=== PATIENT | male | born 1965 | race African-American/Black ===

== ENCOUNTER → 2016-12-15 | Outpatient (CLI) | payer MEDICARE, MEDICAID ==
[~2016-12-15] MED LIST: AML5T PO; ASPI-498 PO; ATOR40TA52 PO; CLOP75TA41 PO; ENA10T PO; GABA250S2 PO; HYDR-4663 PO; PANT1INJ3 PO; PIRO-23 PO; SERT-274 PO; SITA100T7 PO; TAMS0.4C36 PO
[2016-12-15 09:26] LABS: Basophils # (auto) 0.1 uL; Basophils % (auto) 0.5 % (0.0-2.0); CONDITION Y; Eosinophils # (auto) 0.1 uL; Eosinophils % (auto) 1.1 % (0.0-7.0); Hematocrit 36.9 % (41.0-53.0); Hemoglobin 12.2 g/dL (13.5-17.5); Lymphocytes # (auto) 2.6 uL; Lymphocytes % (auto) 24.4 % (10.0-50.0); Mean Corpuscular Hemoglobin 29.1 pg (28.0-32.0); Mean Corpuscular Hgb Conc. 33.1 g/dL (32.0-36.0); Mean Platelet Volume 8.1 fL (7.4-10.4); Monocytes # (auto) 0.6 uL; Neutrophils # (auto) 7.2 uL; Platelet Count (auto) 461 10^3/uL (140-450); Red Cell Distribution Width 16.6 % (11.6-16.0); White Blood Cell 10.6 10^3/uL (4.4-10.8)
[2016-12-15 09:57] LABS: Albumin 3.7 g/dL (3.4-5.0); BUN/Creatinine Ratio 12.6; Bilirubin, Total 0.3 mg/dL (0.2-1.0); Calcium 8.9 mg/dL (8.5-10.1); Potassium 4.1 mmol/L (3.5-5.1); Total Protein 7.9 g/dL (6.4-8.2)
== END | disposition home or self-care (01) ==
LOC: LAB 08:56
PROVIDERS: ATTEND Internal Medicine
DX: E11.9 Type 2 diabetes mellitus without complications (principal); M05.19 Rheumatoid lung disease with rheumatoid arthritis of multiple sites
CPT/HCPCS: 36415; 80053; 83036; 84443; 85025; 85652; 86141

== ENCOUNTER 2017-07-09 08:35 | Emergency (ER) | payer MEDICARE, MEDICAID ==
[~2017-07-09] VITALS: Ht 165.1 cm; Wt 79.4 kg
[~2017-07-09 08:35] MED LIST changes: -AML5T PO; +DULO20CA PO; -GABA250S2 PO; -HYDR-4663 PO; +MULT-228 PO; -PIRO-23 PO; -SERT-274 PO; +TERA2CAP45 PO
[2017-07-09 09:55] VITALS: BP 172/95
[2017-07-09] MEDS ORDERED: diphenhdrAMINE HCL 50 MG/1 ML VL IM ONE (10:30)
[2017-07-09] MEDS ORDERED: KETOROLAC TROMETH 60MG/2ML VIAL IM ONE (10:30)
== END 2017-07-09 11:32 | disposition home or self-care (01) ==
LOC: EDBD 08:35 → ER 08:35
DX: M54.5 Low back pain (principal); G89.29 Other chronic pain; M54.16 Radiculopathy, lumbar region; I25.10 Atherosclerotic heart disease of native coronary artery without angina pectoris; E11.9 Type 2 diabetes mellitus without complications; K21.9 Gastro-esophageal reflux disease without esophagitis; I10 Essential (primary) hypertension; I25.2 Old myocardial infarction; F17.210 Nicotine dependence, cigarettes, uncomplicated; Z79.899 Other long term (current) drug therapy; Z86.73 Personal history of transient ischemic attack (TIA), and cerebral infarction without residual deficits
CPT/HCPCS: 96372; 99284; J1200; J1885

== ENCOUNTER 2017-07-29 08:03 | Emergency (ER) | payer MEDICARE, MEDICAID ==
[~2017-07-29] VITALS: Ht 165.1 cm; Wt 79.4 kg
[2017-07-29 08:42] VITALS: BP 143/83
[2017-07-29 09:22] LABS: Basophils # (auto) 0.1 uL; Basophils % (auto) 0.5 % (0.0-2.0); Eosinophils # (auto) 0.2 uL; Hematocrit 42.4 % (41.0-53.0); Hemoglobin 14.2 g/dL (13.5-17.5); Lymphocytes # (auto) 2.1 uL; Lymphocytes % (auto) 13.6 % (10.0-50.0); Mean Corpuscular Hemoglobin 29.9 pg (28.0-32.0); Mean Corpuscular Hgb Conc. 33.5 g/dL (32.0-36.0); Mean Corpuscular Volume 89.5 fL (80.0-100.0); Monocytes # (auto) 0.8 uL; Monocytes % (auto) 5.5 % (0.0-12.0); Neutrophils # (auto) 12.3 uL; Neutrophils % (auto) 79.4 % (37.0-80.0); Nucleated Red Blood Cells % 0.1 %; Platelet Count (auto) 385 10^3/uL (140-450); Red Blood Cells 4.73 10^6/uL (4.5-5.90); Red Cell Distribution Width 15.5 % (11.8-14.3); White Blood Cell 15.5 10^3/uL (4.4-10.8)
[2017-07-29 09:41] LABS: Albumin 3.9 g/dL (3.4-5.0); Bilirubin, Total 0.7 mg/dL (0.2-1.0); Calcium 9.1 mg/dL (8.5-10.1); Potassium 4.9 mmol/L (3.5-5.1); Total Protein 8.5 g/dL (6.4-8.2)
[2017-07-29 10:03] LABS: Urine WBC None Seen /hpf (0 - 3)
[2017-07-29 10:40] LABS: Urine Bacteria NONE SEEN /hpf (None Seen); Urine Blood TRACE /uL (Negative); Urine Specific Gravity 1.033 (1.001-1.035)
== END 2017-07-29 11:15 | disposition left against medical advice (07) ==
LOC: ER 08:03
DX: R11.2 Nausea with vomiting, unspecified (principal); R19.7 Diarrhea, unspecified; R94.31 Abnormal electrocardiogram [ECG] [EKG]; Z53.21 Procedure and treatment not carried out due to patient leaving prior to being seen by health care provider
CPT/HCPCS: 36415; 80053; 81001; 85025; 93005

== ENCOUNTER 2019-05-09 08:21 | Emergency (ER) | payer MEDICARE, MEDICAID ==
[~2019-05-09] VITALS: Ht 165.1 cm; Wt 73.5 kg
[~2019-05-09 08:21] MED LIST changes: -ENA10T PO; +ENAL10TA PO
[2019-05-09 08:54] LABS: Basophils # (auto) 0 uL; Basophils % (auto) 0.5 % (0.0-2.0); Eosinophils # (auto) 0.1 uL; Eosinophils % (auto) 0.9 % (0.0-7.0); Hematocrit 40.9 % (41.0-53.0); Lymphocytes # (auto) 2.1 uL; Lymphocytes % (auto) 19.5 % (10.0-50.0); Mean Corpuscular Hemoglobin 30.7 pg (28.0-32.0); Mean Corpuscular Hgb Conc. 34.3 g/dL (32.0-36.0); Mean Corpuscular Volume 89.7 fL (80.0-100.0); Monocytes # (auto) 0.6 uL; Monocytes % (auto) 5.6 % (0.0-12.0); Neutrophils # (auto) 7.8 uL; Neutrophils % (auto) 73.5 % (37.0-80.0); Nucleated Red Blood Cells % 0.1 %; Platelet Count (auto) 334 10^3/uL (140-450); Red Blood Cells 4.56 10^6/uL (4.5-5.90); Red Cell Distribution Width 14.9 % (11.8-14.3); White Blood Cell 10.6 10^3/uL (4.4-10.8)
[2019-05-09 09:12] LABS: Alanine Aminotransferase 20 U/L (16-61); Anion Gap 6 (5-15); Aspartate Aminotransferase 8 U/L (15-37); Blood Urea Nitrogen 16 mg/dL (7-18); Calcium 7.9 mg/dL (8.5-10.1); Carbon Dioxide 23 mmol/L (21-32); Chloride 109 mmol/L (98-107); GFR African American 92 mL/min; GFR Non-African American 76 mL/min; Glucose 375 mg/dL (74-106); Potassium 4.1 mmol/L (3.5-5.1); Sodium 138 mmol/L (136-145)
[2019-05-09 09:17] LABS: Alkaline Phosphatase 92 U/L (45-117); Bilirubin, Total 0.3 mg/dL (0.2-1.0); Total Protein 7.1 g/dL (6.4-8.2)
[2019-05-09] MEDS ORDERED: SODIUM CHLORIDE 0.9% 1,000 ML IV ONE ×2 (09:27)
[2019-05-09] MEDS ORDERED: InsuLIN REG 1unit/0.01ml Soln (100units/ml) SC ONE (09:30)
[2019-05-09 09:41] LABS: Urine Bacteria NONE SEEN /hpf (None Seen); Urine Blood Negative /uL (Negative); Urine Specific Gravity 1.026 (1.001-1.035); Urine WBC 3 /hpf (0 - 3)
[2019-05-09 12:00] VITALS: BP 114/97
== END 2019-05-09 12:59 | disposition home or self-care (01) ==
LOC: EDBD 08:21 → ER 08:22
DX: E11.65 Type 2 diabetes mellitus with hyperglycemia (principal); I25.10 Atherosclerotic heart disease of native coronary artery without angina pectoris; K21.9 Gastro-esophageal reflux disease without esophagitis; I10 Essential (primary) hypertension; I25.2 Old myocardial infarction; F17.210 Nicotine dependence, cigarettes, uncomplicated
CPT/HCPCS: 36415; 80053; 81001; 82962; 84484; 85025; 93005; 96360; 96361; 96372; 99284; J1815; J7030

== ENCOUNTER 2020-09-29 20:29 | Inpatient (IN) | payer OTHER, MEDICAID ==
[~2020-09-29] VITALS: Ht 165.1 cm; Wt 78.0 kg
[~2020-09-29 20:29] MED LIST changes: -CLOP75TA41 PO; +CLOP75TA70 PO; -ENAL10TA PO; +ENAL10TA12 PO
[2020-09-29 21:44] LABS: Basophils # (auto) 0.1 10 ^3/uL (0-0.2); Basophils % (auto) 0.7 % (0.0-2.0); Eosinophils # (auto) 0.1 10 ^3/uL (0-0.8); Eosinophils % (auto) 0.7 % (0.0-7.0); Hemoglobin 13.7 g/dL (13.5-17.5); Lymphocytes # (auto) 2.5 10 ^3/uL (0.4-5.4); Lymphocytes % (auto) 23.1 % (10.0-50.0); Mean Corpuscular Hemoglobin 30.1 pg (28.0-32.0); Mean Corpuscular Hgb Conc. 33.3 g/dL (32.0-36.0); Mean Corpuscular Volume 90.1 fL (80.0-100.0); Monocytes # (auto) 0.7 10 ^3/uL (0-1.3); Monocytes % (auto) 6.2 % (0.0-12.0); Neutrophils # (auto) 7.4 10 ^3/uL (1.6-8.6); Neutrophils % (auto) 69.3 % (37.0-80.0); Nucleated Red Blood Cells % 0.1 %; Platelet Count (auto) 346 10^3/uL (140-450); Red Blood Cells 4.55 10^6/uL (4.5-5.90); Red Cell Distribution Width 15.2 % (11.8-14.3); White Blood Cell 10.7 10^3/uL (4.4-10.8)
[2020-09-29] MEDS ORDERED: LABETALOL HCL 5 MG/ML 4ML SYRINGE IV ONE (21:45)
[2020-09-29 22:04] LABS: INR 0.96 (0.9-1.15); Partial Thromboplastin Time 23.1 sec (23.0-31.2)
[2020-09-29 22:11] LABS: Albumin 3.3 g/dL (3.4-5.0); Anion Gap 8 (5-15); Blood Urea Nitrogen 17 mg/dL (7-18); Calcium 9.2 mg/dL (8.5-10.1); Carbon Dioxide 24 mmol/L (21-32); Chloride 108 mmol/L (98-107); Glucose 257 mg/dL (74-106); Potassium 3.8 mmol/L (3.5-5.1); Sodium 140 mmol/L (136-145)
[2020-09-29 22:20] LABS: Alanine Aminotransferase 27 U/L (16-61); Alkaline Phosphatase 89 U/L (45-117); Aspartate Aminotransferase 12 U/L (15-37); Bilirubin, Total 0.3 mg/dL (0.2-1.0); GFR African American 93 mL/min; GFR Non-African American 77 mL/min; Total Protein 7.6 g/dL (6.4-8.2)
[2020-09-30] MEDS ORDERED: LABETALOL HCL 5 MG/ML 4ML SYRINGE IV ONE (03:00)
[2020-09-30] MEDS ORDERED: IBUPROFEN 800 MG TAB PO ONE (03:00)
[2020-09-30 03:42] LABS: Urine Bacteria NONE SEEN /hpf (None Seen); Urine Blood TRACE /uL (Negative); Urine Mucus FEW (None Seen); Urine Specific Gravity 1.028 (1.001-1.035); Urine WBC 6 /hpf (0 - 3); Urine WBC Clumps PRESENT /hpf (None Seen)
[2020-09-30] MEDS ORDERED: dilTIAZem 25 MG/5 ML VIAL IV ONE (04:30)
[2020-09-30] MEDS ORDERED: DEXTROSE (50%) 50ML SYRG IV PRN ×2 (04:30→13:30)
[2020-09-30] MEDS ORDERED: TEMAZEPAM 15 MG CAP PO PRN (04:30)
[2020-09-30] MEDS ORDERED: MORPHINE SULF INJ 2 MG/ML SYRINGE 1ML IV PRN (04:30)
[2020-09-30] MEDS ORDERED: ONDANSETRON HCL 4 MG/2 ML VIAL IV PRN (04:30)
[2020-09-30] MEDS ORDERED: NITROGLYCERIN 0.4 MG SL TAB SL PRN (04:30)
[2020-09-30] MEDS: ACCU-CHEK COMFORT CURVE STRIP VI SCH ×5 (06:29→23:48)
[2020-09-30] MEDS: InsuLIN REG 1unit/0.01ml Soln (100units/ml) SC SCH ×4 (06:30→23:51)
[2020-09-30 09:00] VITALS: BP 150/86
[2020-09-30 09:59] VITALS: BP 150/86
[2020-09-30] MEDS: CLOPIDOGREL BISULFATE 75 MG TAB PO SCH (10:01)
[2020-09-30] MEDS: PANTOPRAZOLE 40 MG TAB PO SCH (10:01)
[2020-09-30] MEDS: ENALAPRIL MALEATE 10 MG TAB PO SCH ×2 (10:02→21:55)
[2020-09-30] MEDS: ASPirin 81 mg TAB PO SCH (10:02)
[2020-09-30] MEDS: ACETAMINOPHEN 325 MG TAB PO PRN (10:03)
[2020-09-30] MEDS ORDERED: INSU100I43 SC (10:49)
[2020-09-30] MEDS ORDERED: INSLANTI SC (10:49)
[2020-09-30] MEDS ORDERED: LOSA-69 PO (10:51)
[2020-09-30] MEDS ORDERED: metFORMIN HYDROCHLORIDE 500 MG TAB PO ONE (12:15)
[2020-09-30 13:05] VITALS: BP 161/77
[2020-09-30 16:43] VITALS: BP 148/74
[2020-09-30] MEDS: metFORMIN HYDROCHLORIDE 500 MG TAB PO SCH ×2 (18:00→18:03)
[2020-09-30] MEDS: TAMSULOSIN HYDROCHLORIDE 0.4 MG CAP PO SCH (18:02)
[2020-09-30] MEDS: ATORVASTATIN 20 MG TAB PO SCH (21:54)
[2020-09-30 22:00] VITALS: BP 153/74
[2020-09-30] MEDS: ALPRAZolam 0.25 MG TAB PO PRN (23:04)
[2020-10-01 05:00] VITALS: BP 129/85
[2020-10-01] MEDS: ACCU-CHEK COMFORT CURVE STRIP VI SCH ×4 (05:41→23:35)
[2020-10-01] MEDS: InsuLIN REG 1unit/0.01ml Soln (100units/ml) SC SCH ×4 (05:44→23:37)
[2020-10-01 08:46] VITALS: BP 156/81
[2020-10-01 09:07] LABS: Basophils # (auto) 0.1 10 ^3/uL (0-0.2); Basophils % (auto) 0.7 % (0.0-2.0); Eosinophils # (auto) 0.1 10 ^3/uL (0-0.8); Eosinophils % (auto) 0.9 % (0.0-7.0); Hematocrit 39.6 % (41.0-53.0); Hemoglobin 12.9 g/dL (13.5-17.5); Lymphocytes # (auto) 2.7 10 ^3/uL (0.4-5.4); Lymphocytes % (auto) 21.4 % (10.0-50.0); Mean Corpuscular Hemoglobin 29.6 pg (28.0-32.0); Mean Corpuscular Hgb Conc. 32.6 g/dL (32.0-36.0); Mean Corpuscular Volume 90.7 fL (80.0-100.0); Monocytes # (auto) 0.8 10 ^3/uL (0-1.3); Neutrophils # (auto) 8.9 10 ^3/uL (1.6-8.6); Nucleated Red Blood Cells % 0.2 %; Platelet Count (auto) 335 10^3/uL (140-450); Red Blood Cells 4.36 10^6/uL (4.5-5.90); White Blood Cell 12.5 10^3/uL (4.4-10.8)
[2020-10-01 09:25] LABS: Magnesium 1.9 mg/dL (1.6-2.6); Potassium 3.8 mmol/L (3.5-5.1)
[2020-10-01 09:32] LABS: Albumin 3.1 g/dL (3.4-5.0); BUN/Creatinine Ratio 18.8; Bilirubin, Total 0.5 mg/dL (0.2-1.0); Calcium 8.8 mg/dL (8.5-10.1); Total Protein 6.8 g/dL (6.4-8.2)
[2020-10-01] MEDS: metFORMIN HYDROCHLORIDE 500 MG TAB PO SCH ×2 (09:47→17:41)
[2020-10-01] MEDS: CLOPIDOGREL BISULFATE 75 MG TAB PO SCH (09:47)
[2020-10-01] MEDS: ENALAPRIL MALEATE 10 MG TAB PO SCH ×2 (09:48→22:08)
[2020-10-01] MEDS: PANTOPRAZOLE 40 MG TAB PO SCH (09:48)
[2020-10-01] MEDS: ASPirin 81 mg TAB PO SCH (09:49)
[2020-10-01] MEDS: ALPRAZolam 0.25 MG TAB PO PRN ×2 (10:22→23:38)
[2020-10-01 10:49] LABS: Folate (Folic Acid) 16.16 ng/mL (5.38-24)
[2020-10-01] MEDS: cloNIDine HCL 0.1 MG TAB PO PRN (12:11)
[2020-10-01 12:30] VITALS: BP 190/81
[2020-10-01 16:47] VITALS: BP 156/98
[2020-10-01] MEDS: TAMSULOSIN HYDROCHLORIDE 0.4 MG CAP PO SCH (17:42)
[2020-10-01 22:00] VITALS: BP 145/78
[2020-10-01] MEDS: ATORVASTATIN 20 MG TAB PO SCH (22:07)
[2020-10-02 05:00] VITALS: BP 155/81
[2020-10-02] MEDS: ACCU-CHEK COMFORT CURVE STRIP VI SCH ×4 (05:33→23:18)
[2020-10-02] MEDS: InsuLIN REG 1unit/0.01ml Soln (100units/ml) SC SCH ×4 (05:34→23:23)
[2020-10-02] MEDS: metFORMIN HYDROCHLORIDE 500 MG TAB PO SCH ×2 (08:00→18:00)
[2020-10-02 09:13] VITALS: BP 159/80
[2020-10-02] MEDS: ASPirin 81 mg TAB PO SCH (09:52)
[2020-10-02] MEDS: CLOPIDOGREL BISULFATE 75 MG TAB PO SCH (09:52)
[2020-10-02] MEDS: PANTOPRAZOLE 40 MG TAB PO SCH (09:53)
[2020-10-02] MEDS: ENALAPRIL MALEATE 10 MG TAB PO SCH ×2 (09:55→21:27)
[2020-10-02 12:30] VITALS: BP 159/94
[2020-10-02 16:53] VITALS: BP 176/85
[2020-10-02] MEDS: TAMSULOSIN HYDROCHLORIDE 0.4 MG CAP PO SCH (18:12)
[2020-10-02] MEDS: ATORVASTATIN 20 MG TAB PO SCH (21:23)
[2020-10-02 22:00] VITALS: BP 175/86
[2020-10-02] MEDS: ALPRAZolam 0.25 MG TAB PO PRN (23:17)
[2020-10-03] MEDS: cloNIDine HCL 0.1 MG TAB PO PRN (04:44)
[2020-10-03 05:00] VITALS: BP 163/85
[2020-10-03] MEDS: InsuLIN REG 1unit/0.01ml Soln (100units/ml) SC SCH ×4 (06:02→23:24)
[2020-10-03] MEDS: ACCU-CHEK COMFORT CURVE STRIP VI SCH ×4 (06:02→23:25)
[2020-10-03] MEDS: metFORMIN HYDROCHLORIDE 500 MG TAB PO SCH ×2 (08:00→18:00)
[2020-10-03 09:06] VITALS: BP 124/55
[2020-10-03] MEDS: ASPirin 81 mg TAB PO SCH (09:22)
[2020-10-03] MEDS: DULoxetine HCL 30 MG CAP PO SCH (09:22)
[2020-10-03] MEDS: CLOPIDOGREL BISULFATE 75 MG TAB PO SCH (09:22)
[2020-10-03] MEDS: PANTOPRAZOLE 40 MG TAB PO SCH (09:23)
[2020-10-03 12:54] VITALS: BP 157/96
[2020-10-03] MEDS: ENALAPRIL MALEATE 10 MG TAB PO SCH ×2 (13:15→21:21)
[2020-10-03 16:55] VITALS: BP 149/82
[2020-10-03] MEDS: TAMSULOSIN HYDROCHLORIDE 0.4 MG CAP PO SCH (18:20)
[2020-10-03] MEDS: ATORVASTATIN 20 MG TAB PO SCH (21:19)
[2020-10-03] MEDS: ALPRAZolam 0.25 MG TAB PO PRN (21:24)
[2020-10-03 22:00] VITALS: BP 163/88
[2020-10-03] MEDS ORDERED: traZODone HCL 50 MG TAB PO SCH (22:00)
[2020-10-04] MEDS: cloNIDine HCL 0.1 MG TAB PO PRN (04:55)
[2020-10-04 05:00] VITALS: BP 166/87
[2020-10-04] MEDS: ACCU-CHEK COMFORT CURVE STRIP VI SCH ×2 (06:24→12:01)
[2020-10-04] MEDS: InsuLIN REG 1unit/0.01ml Soln (100units/ml) SC SCH ×2 (06:38→12:02)
[2020-10-04] MEDS: metFORMIN HYDROCHLORIDE 500 MG TAB PO SCH (08:00)
[2020-10-04 08:54] VITALS: BP 138/70
[2020-10-04] MEDS: ASPirin 81 mg TAB PO SCH (09:36)
[2020-10-04] MEDS: DULoxetine HCL 30 MG CAP PO SCH (09:37)
[2020-10-04] MEDS: PANTOPRAZOLE 40 MG TAB PO SCH (09:37)
[2020-10-04] MEDS: ENALAPRIL MALEATE 10 MG TAB PO SCH (09:37)
[2020-10-04] MEDS: ACETAMINOPHEN 325 MG TAB PO PRN (09:37)
[2020-10-04] MEDS: CLOPIDOGREL BISULFATE 75 MG TAB PO SCH (09:37)
[2020-10-04 13:00] VITALS: BP 153/84
[2020-10-04 13:23] VITALS: BP 153/84
[2020-10-04 16:30] VITALS: BP 154/96
== END 2020-10-04 17:20 | DRG 149 ==
LOC: EDBD 20:29 → ER 20:31 → TELE 09-30 04:20 → TELE-CENTR 09-30 09:00
PROVIDERS: ADMIT Nurse Practitioner; ATTEND Internal Medicine Geriatric Medicine
DX: H81.10 Benign paroxysmal vertigo, unspecified ear (principal); I69.354 Hemiplegia and hemiparesis following cerebral infarction affecting left non-dominant side; E11.9 Type 2 diabetes mellitus without complications; I10 Essential (primary) hypertension; K21.9 Gastro-esophageal reflux disease without esophagitis; I25.10 Atherosclerotic heart disease of native coronary artery without angina pectoris; F12.90 Cannabis use, unspecified, uncomplicated; Z20.822 Contact with and (suspected) exposure to COVID-19; E78.5 Hyperlipidemia, unspecified; F17.210 Nicotine dependence, cigarettes, uncomplicated; F32.9 Major depressive disorder, single episode, unspecified; F41.9 Anxiety disorder, unspecified; N40.0 Benign prostatic hyperplasia without lower urinary tract symptoms; Z59.0 Homelessness; Z79.82 Long term (current) use of aspirin; Z79.899 Other long term (current) drug therapy; Z82.49 Family history of ischemic heart disease and other diseases of the circulatory system; Z83.3 Family history of diabetes mellitus
CPT/HCPCS: 36415; 70450; 70551; 71045; 80053; 80061; 81001; 82607; 82746; 82962; 83036; 83735; 84443; 84484; 85025; 85610; 85730; 87426; 93005; 93886; 96374; 96375; G0378; J1815; J3490

== ENCOUNTER 2021-02-27 15:14 | Emergency (ER) | payer OTHER, MEDICAID ==
[~2021-02-27] VITALS: Ht 177.8 cm; Wt 81.6 kg
[~2021-02-27 15:14] MED LIST changes: -ENAL10TA12 PO; +INSLANTI SC; +INSU100I43 SC; +LOSA-69 PO
[2021-02-27 16:45] LABS: Basophils # (auto) 0.1 10 ^3/uL (0-0.2); Basophils % (auto) 0.5 % (0.0-2.0); Eosinophils # (auto) 0.1 10 ^3/uL (0-0.8); Eosinophils % (auto) 0.5 % (0.0-7.0); Hematocrit 38.5 % (41.0-53.0); Hemoglobin 12.7 g/dL (13.5-17.5); Lymphocytes # (auto) 2.9 10 ^3/uL (0.4-5.4); Lymphocytes % (auto) 26.4 % (10.0-50.0); Mean Corpuscular Hemoglobin 30.1 pg (28.0-32.0); Mean Corpuscular Hgb Conc. 33.1 g/dL (32.0-36.0); Mean Corpuscular Volume 90.9 fL (80.0-100.0); Monocytes # (auto) 0.6 10 ^3/uL (0-1.3); Monocytes % (auto) 5.8 % (0.0-12.0); Neutrophils # (auto) 7.5 10 ^3/uL (1.6-8.6); Neutrophils % (auto) 66.8 % (37.0-80.0); Red Blood Cells 4.24 10^6/uL (4.5-5.90); White Blood Cell 11.2 10^3/uL (4.4-10.8)
[2021-02-27 17:19] LABS: Albumin 3.9 g/dL (3.4-5.0); Anion Gap 5 (5-15); Blood Urea Nitrogen 15 mg/dL (7-18); Calcium 9.6 mg/dL (8.5-10.1); Carbon Dioxide 27 mmol/L (21-32); Chloride 107 mmol/L (98-107); Glucose 108 mg/dL (74-106); Magnesium 2.1 mg/dL (1.6-2.6); Potassium 4.9 mmol/L (3.5-5.1); Sodium 139 mmol/L (136-145)
[2021-02-27 17:22] LABS: BUN/Creatinine Ratio 13.3; GFR African American 86 mL/min; GFR Non-African American 71 mL/min
[2021-02-27 17:27] LABS: Alanine Aminotransferase 21 U/L (16-61); Alkaline Phosphatase 71 U/L (45-117); Aspartate Aminotransferase 15 U/L (15-37); Bilirubin, Total 0.4 mg/dL (0.2-1.0); Total Protein 8.2 g/dL (6.4-8.2)
[2021-02-27 23:06] VITALS: BP 145/85
== END 2021-02-28 00:46 | disposition left against medical advice (07) ==
LOC: ER 15:14 → EDBD 15:14 → ER 02-28 00:46
DX: I10 Essential (primary) hypertension (principal); R11.0 Nausea; Z53.21 Procedure and treatment not carried out due to patient leaving prior to being seen by health care provider
CPT/HCPCS: 36415; 71046; 80053; 83735; 84484; 85025; 93005